=== PATIENT | female | born 2000 | race Two or more races ===

== ENCOUNTER 2022-09-06 12:50 | Emergency (ER) | payer MEDICAID, OTHER ==
[~2022-09-06] VITALS: Ht 167.6 cm; Wt 70.0 kg
[2022-09-06] MEDS ORDERED: NAPR500T31 PO (14:38)
[2022-09-06 14:52] VITALS: BP 150/88
== END 2022-09-06 14:54 | disposition home or self-care (01) ==
LOC: ER 12:50
DX: S53.402A Unspecified sprain of left elbow, initial encounter (principal); W01.0XXA Fall on same level from slipping, tripping and stumbling without subsequent striking against object, initial encounter; Y93.89 Activity, other specified; Y92.89 Other specified places as the place of occurrence of the external cause; Y99.8 Other external cause status
CPT/HCPCS: 73080